=== PATIENT | female | born 1945 | race Caucasian/White ===

== ENCOUNTER → 2020-04-24 | Outpatient (CLI) | payer MEDICARE ==
[~2020-04-24] MED LIST: ASPI325T6 PO; ASPIRIN 32325 MG/TAB PO; CAPOTEN 25MG25 MG PO; CIPRO 500MG TA500 MG PO; COLACE 100100 MG/CAP PO; GLUCOPHAGE1000 MG PO; HUMALOG100 U/ML SQ; LANTUS100 U/ML SQ; LEVEMIR FLEX100 U/ML SQ; MILK OF MA400 MG/5 M PO; NORCO 325 MG-7.1 TAB PO; NOVLOG SQ; TYLENOL 325MG325 MG PO
== END ==
LOC: ZCOL.LAB 17:49
DX: E11.621 Type 2 diabetes mellitus with foot ulcer (principal); L97.529 Non-pressure chronic ulcer of other part of left foot with unspecified severity

== ENCOUNTER 2020-07-05 21:22 | Inpatient (IN) | payer MEDICARE ==
[~2020-07-05] VITALS: Ht 152.4 cm; Wt 60.9 kg
[2020-07-05 22:47] VITALS: BP 145/75; PULSE 93; TEMP 98.6
[2020-07-05] MEDS ORDERED: VICTOZA6 MG/ML SQ (23:53)
[2020-07-05] MEDS ORDERED: ELIQUIS 5MG PO (23:54)
[2020-07-05] MEDS ORDERED: LASIX 20MG TABL20 MG PO (23:55)
[2020-07-05] MEDS ORDERED: GLUCOPHAGE500 MG/TAB PO (23:56)
[2020-07-05] MEDS ORDERED: TOPROL XL 25MG25 MG PO (23:57)
[2020-07-05] MEDS ORDERED: DINO-LIFE1 CTB PO (23:58)
[2020-07-06] VITALS (7 sets, daily range): BP systolic 129–147; BP diastolic 64–85; PULSE 85–104; TEMP 98.2–98.4
--- NOTE | 2020-07-06 00:30 | NUR ---
PT TRANSFERRED FROM [facility] WITH LT FOOT WOUND. SEEN BY HOSPITALIST Khadijah TO BE SEEN BY ORTHO IN A.M. 5 PAGE ASSESSMENT DONE. PT ONLY SPEAKS ICELANDIC. DAUGHTER IN ROOM TO FACILITATE CARE.
--- NOTE | 2020-07-06 00:31 | NUR ---
Vancomycin Initial Dosing Pharmacy Note Ordering provider: Liz Delcid DO Indication/duration: L FOOT WOUND/POSSIBLE OSTEO (7 DAYS) Trough goal: 15-20 HX: HX NOT APPLICABLE 2/2 DIFFERENCE IN RENAL FUNCTION 75 YO F BMI:26.3 WT:61KG OSH SCR:1.17 EST CRCL~35 ML/MIN T1/2 ~21H PT RECEIVED VANCO 1GM X1 FROM OSH PRIOR TO ARRIVAL ON 07/05 @2230 PER RN. WILL START MAINTENANCE REGIMEN OF VANCO 1GM Q24H, WILL BEGIN THIS SLIGHTLY EARLIER TO ACCOUNT FOR THE LOWER INITIAL LOADING DOSE. WILL MONITOR RENAL FUNCTION, MICRO, AND SURGERY PLANS FOR NEED TO ADJUST THERAPY. THANK YOU FOR THIS DOSING CONSULT.
[2020-07-06 01:16] LABS: INR 1.8 (0.8-3.0); PROTHROMBIN TIME 20.1 SECONDS (9.7-12.8)
[2020-07-06 03:09] LABS: IRON,SERUM 22 ug/dL (35-150)
[2020-07-06 03:18] LABS: TOTAL IRON BINDING CAPACITY 205 ug/dL (265-497)
--- NOTE | 2020-07-06 06:21 | NUR ---
RESTING QUIETLY. INCONT. OF BLADDER. DAUGHTER IN ROOM. NO c/o PAIN.
[2020-07-06 07:37] LABS: BASO # 0.1 (0.0-0.2); BASO % 0.4 % (0.0-2.0); EOS # 0.3 (0.0-0.7); EOS % 2.2 % (0-4.0); GRAN # 10.4 (1.4-6.5); GRAN % 76.2 % (42.2-75.2); HEMOGLOBIN 8.5 g/dl (12.5-16.0); LYMPH # 1.5 (1.2-3.4); LYMPH % 10.8 % (20.0-51.0); MEAN CELL VOLUME 90 fl (80.0-100.0); MEAN CORPUSCULAR HEMOGLOBIN 29 pg (27.0-31.0); MEAN CORPUSCULAR HGB CONC 33 g/dl (33.0-37.0); MEAN PLATELET VOLUME 8.1 fl (7.4-10.4); MONO # 1.3 (0.1-0.6); MONO % 9.4 % (1.7-9.3); PLATELET COUNT 886 K/mm3 (130-400); RED BLOOD COUNT 2.89 M/mm3 (4.10-5.30); REDCELL DISTRIBUTION WIDTH-CV 13.7 % (11.5-14.5)
[2020-07-06 07:53] LABS: CALCIUM 8.7 mg/dL (8.4-10.2); CREATININE, serum 0.84 (0.52-1.25); POTASSIUM 3.8 mmol/L (3.4-5.0)
[2020-07-06 09:15] LABS: PH 7 (5-8); SQUAMOUS EPITHELIAL 0-2 /hpf; URINE APPEARANCE Clear; URINE BACTERIA None Seen /hpf; URINE BILIRUBIN Negative (NEGATIVE); URINE BLOOD Negative (NEGATIVE); URINE COLOR Straw; URINE GLUCOSE Negative (NEGATIVE); URINE KETONE Negative (NEGATIVE); URINE LEUKOCYTE ESTERASE 1+ (NEGATIVE); URINE NITRATE Negative (NEGATIVE); URINE PROTEIN(semi-quant) Negative (NEGATIVE); URINE RBC 0-2 /hpf; URINE UROBILINOGEN Negative (NEGATIVE)
[2020-07-06 09:20] LABS: COLLECTION METHOD CLEAN CATCH
--- NOTE | 2020-07-06 10:57 | NUR ---
SW met with patient complete intake. Patient's daughter assisted with intake information. Daughter Ana [phone] provides that patient lives with her in [place]. Daughter states that patient has been utilizing a cane and also a walker, receives ADL assistance from daughter at home. Daughter states that PCP is at [facility], pharmacy is [facility], and that she is able to afford medications at this time. Daughter states that she would like to have the DPOA- to review with patient when she is able to. Daughter states that patient plans to go back home upon DC. Homehealth resource document provided to daughter for review to decide which agency she would like to receive assistance from. SW to continue to follow.
--- NOTE | 2020-07-06 21:30 | NUR ---
Pt assessment completed and charted, alert not fully oriented. Congolese speaker, daughter is on her bedside. Left knee is elevated, hemovac drainage is running without complications. I/V line is CD&I. Meds provided as per NOV, tolerated well. Bed alaram is on, call light is on reach. No further needs at this time.
[2020-07-07 00:17] VITALS: BP 128/65; PULSE 85; TEMP 98.4
[2020-07-07 04:48] VITALS: BP 122/62; PULSE 82; TEMP 97.5
--- NOTE | 2020-07-07 05:29 | NUR ---
Pt had an uneventful night, slept through out the night. Morning meds provided as per NOV, tolrated well. No further needs at this time.
[2020-07-07 07:22] VITALS: BP 138/75; PULSE 85; TEMP 97.9
--- NOTE | 2020-07-07 08:00 | NUR ---
Patient in bed resting. Alert and oriented x 3. Assessment complete. Hamlet wrap to LLE is CDI. Patient denies pain at this time. Daughter at bedside. Fluids infusing per orders. Denies further needs at this time.
--- NOTE | 2020-07-07 09:37 | NUR ---
PT in with patient.
[2020-07-07 09:45] LABS: MEAN CELL VOLUME 91 fl (80.0-100.0); MEAN CORPUSCULAR HGB CONC 33 g/dl (33.0-37.0); MEAN PLATELET VOLUME 8.3 fl (7.4-10.4); RED BLOOD COUNT 2.64 M/mm3 (4.10-5.30); REDCELL DISTRIBUTION WIDTH-CV 13.8 % (11.5-14.5)
[2020-07-07 09:51] LABS: HEMATOCRIT 23.9 % (37.0-47.0); HEMOGLOBIN 7.9 g/dl (12.5-16.0); MEAN CORPUSCULAR HEMOGLOBIN 30 pg (27.0-31.0); PLATELET COUNT 785 K/mm3 (130-400)
[2020-07-07 09:57] LABS: CALCIUM 8.3 mg/dL (8.4-10.2); CREATININE, serum 0.58 (0.52-1.25); POTASSIUM 3.9 mmol/L (3.4-5.0)
[2020-07-07 10:34] LABS: BAND 28 % (0-10); BASOPHIL 1 % (0-2); LYMPHOCYTE 4 % (20.0-51.0); NEUTROPHILS 62 % (42.0-75.2); PLATELET ESTIMATE INCREASED (NORMAL)
[2020-07-07 11:01] VITALS: BP 138/75; PULSE 88; TEMP 97.7
--- NOTE | 2020-07-07 11:14 | NUR ---
First visit from the administration vice president. No needs right now.
--- NOTE | 2020-07-07 11:16 | NUR ---
Patient incontinent of urine, pericare provided. Denies further needs at this time. continues to deny pain.
--- NOTE | 2020-07-07 12:20 | NUR ---
Assisted patient with meal. Denies further needs.
[2020-07-07 15:27] VITALS: BP 146/79; PULSE 87; TEMP 97.8
--- NOTE | 2020-07-07 15:29 | NUR ---
PT is recommending home with family assistance and home health vs IPR. The patient is turkish speaking. SW contacted the patient's daughter, Ana, to discuss PT's recommendation. Ana reports that she would like to take the patient home with home health. SW informed her of the different home health agencies. Ana chose [facility]. BAR contacted and faxed a referral to Eliza at [facility]. Eliza reports that they have had the patient in the past and would be able to accept her again for services. BAR to inform the patient's daughter.
--- NOTE | 2020-07-07 18:51 | NUR ---
Patient has done well throughout the day. Having minimal output from Hemovac drain. Patient continues to deny pain throughout the day, repositioned patient throughout the day, encouraged patient to change position. Patient incontinent of urine throughout the day, pericare provided. Assisted with meals, but refusing supper. Denies further needs at this time. Will report off to shift boss.
[2020-07-07 20:18] VITALS: BP 124/64; PULSE 83; TEMP 98.1
--- NOTE | 2020-07-07 21:11 | NUR ---
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 PT DENIES ANY SOB OR OTHER DISCOMFORT. DAUGHTER AT BEDSIDE HELPING TO TRANSLATE SIMPLE QUESTIONS AND COMMANDS. WILL CONTINUE TO MONITOR PT STATUS AND UPDAE PROVIDERS NEEDED.
[2020-07-08 00:21] VITALS: BP 148/78; PULSE 83; TEMP 98.5
[2020-07-08 04:42] VITALS: BP 126/58; PULSE 73; TEMP 98.7
--- NOTE | 2020-07-08 07:00 | NUR ---
Dr. Mathur in to see patient. Hemovac out at this time.
[2020-07-08 07:21] LABS: BASO % 0.2 % (0.0-2.0); EOS # 0.2 (0.0-0.7); EOS % 1.6 % (0-4.0); GRAN # 7.9 (1.4-6.5); GRAN % 64.9 % (42.2-75.2); LYMPH % 24.9 % (20.0-51.0); MEAN CELL VOLUME 89 fl (80.0-100.0); MEAN CORPUSCULAR HGB CONC 33 g/dl (33.0-37.0); MEAN PLATELET VOLUME 8.1 fl (7.4-10.4); MONO # 0.9 (0.1-0.6); MONO % 7.6 % (1.7-9.3); PLATELET COUNT 763 K/mm3 (130-400); RED BLOOD COUNT 2.72 M/mm3 (4.10-5.30); REDCELL DISTRIBUTION WIDTH-CV 13.8 % (11.5-14.5)
[2020-07-08 07:24] LABS: HEMATOCRIT 24.2 % (37.0-47.0); MEAN CORPUSCULAR HEMOGLOBIN 29 pg (27.0-31.0)
[2020-07-08 07:31] VITALS: BP 138/70; PULSE 73; TEMP 97.8
[2020-07-08 07:36] LABS: CALCIUM 8.3 mg/dL (8.4-10.2); CREATININE, serum 0.82 (0.52-1.25); POTASSIUM 3.9 mmol/L (3.4-5.0)
--- NOTE | 2020-07-08 08:30 | NUR ---
Patient in bed resting. Alert and oriented x 3. Assessment complete. Daughter at bedside. Patient states she would like to go home today. Acewrap to LLE is CDI. Denies further needs at this time.
--- NOTE | 2020-07-08 08:32 | NUR ---
patient states she has no pain at this time. No abnormal findings during morning assessment. No drainage from surgical site of the lower left leg. Daughter stated she will be at bedside for the remainder of the day. Telemetry in place and INT in Top left wrist is intact and has no signs of redness or swelling.
[2020-07-08 10:30] VITALS: BP 124/66; PULSE 72; TEMP 98.2
--- NOTE | 2020-07-08 10:39 | NUR ---
BAR met with the patient and her daughter, Ana, to update on [facility]'s acceptance. BAR also addressed equipment needs for a wheelchair and sliding board. Ana reports that the patient has a wheelchair. She states that they will need a sliding board. BAR staffed with PT. PT recommends a 30 inch sliding board to also accomodate car transfers. BAR contacted [facility], [facility], [facility], and [facility]. They all did not have a 30 inch sliding board in stock. Heladio, at [facility], reports that they do have a 30 inch in stock, but do not bill insurance. The total of the sliding board is $37.87. BAR updated Ana. Ana reports that she is agreeable to private pay the above cost and would like to get the board at [facility]. BAR notified Heladio at [facility] and they have set the board aside for the patient.
[2020-07-08] MEDS ORDERED: TYLENOL 325MG325 MG PO (11:01)
[2020-07-08] MEDS ORDERED: NORCO 325 MG-51 TAB PO (11:02)
--- NOTE | 2020-07-08 11:16 | NUR ---
BAR attended clinical rounds. The patient is ready to d/c today. BAR followed up with the patient and her daughter, Ana. SW presented and read the IM form outloud to Ana. Ana verbalized understanding and gave SW approval to sign the form on her behalf. BAR provided her with a copy. The patient is to discharge back home with her daughter today, 07/08, with home health services for longterm/PT/OT through [facility]. BAR attempted to notify Eliza at [facility]. BAR left her a voicemail and faxed over the d/c orders. No additional needs at this time.
--- NOTE | 2020-07-08 14:20 | NUR ---
Patient incontinent of urine, pericare provided. Discharge education provided to patient and daughter. Educated on new medication and medication safety. Educated on dressing and stump cardboard cutter to be placed in ortho office. Dressing to LLE changed per Dr. Mathur order. Denies further needs at this time. All questions answered. INT discontinued, catheter tip intact. Patient out by wheelchair with surgical staff and family.
== END 2020-07-08 14:20 | disposition home health service (06) | DRG 853 ==
LOC: MEDICAL 21:22 → SURG 22:30
PROVIDERS: Orthopaedic Surgery; Physician Assistant
PROC: 0Y6J0Z2 Detachment at Left Lower Leg, Mid, Open Approach (ICD-10-PCS; principal; 2020-07-06 12:30)
DX: A41.9 Sepsis, unspecified organism (principal); J96.01 Acute respiratory failure with hypoxia; E87.1 Hypo-osmolality and hyponatremia; L03.116 Cellulitis of left lower limb; L97.429 Non-pressure chronic ulcer of left heel and midfoot with unspecified severity; M86.9 Osteomyelitis, unspecified; E11.51 Type 2 diabetes mellitus with diabetic peripheral angiopathy without gangrene; E11.40 Type 2 diabetes mellitus with diabetic neuropathy, unspecified; E11.621 Type 2 diabetes mellitus with foot ulcer; E11.69 Type 2 diabetes mellitus with other specified complication; I10 Essential (primary) hypertension; I48.91 Unspecified atrial fibrillation; D64.9 Anemia, unspecified; D47.3 Essential (hemorrhagic) thrombocythemia; K59.00 Constipation, unspecified; E78.5 Hyperlipidemia, unspecified; H91.90 Unspecified hearing loss, unspecified ear; Z79.01 Long term (current) use of anticoagulants; Z79.84 Long term (current) use of oral hypoglycemic drugs; Z90.710 Acquired absence of both cervix and uterus; Z89.511 Acquired absence of right leg below knee
CPT/HCPCS: 99223-AI; 99232-AI; 99239; J0690; J0696; J1100; J1815; J2250; J2270; J2370; J2405; J2704; J3010; J3370; J7030; J7050